=== PATIENT | female | born 1935 | race African-American/Black ===

== ENCOUNTER 2018-12-19 05:48 | Inpatient (IN) | payer OTHER ==
[~2018-12-19] VITALS: Ht 165.1 cm; Wt 67.4 kg
[2018-12-19] VITALS (35 sets, daily range): BP systolic 109–162; BP diastolic 48–93
[2018-12-19] MEDS ORDERED: ALBUTEROL (0.083%) 2.5MG/3ML NEB HHN STA (06:23)
[2018-12-19] MEDS ORDERED: ATROPINE SULFATE 1MG/ML VIAL IV ONE (06:30)
[2018-12-19] MEDS ORDERED: METHYLPREDNISOLONE SOD SUCC 125 MG/2 ML VIAL IV ONE (06:45)
[2018-12-19] MEDS ORDERED: DOPAMINE 400MG/250ML PREMIX 250 ML IV ONE (06:45)
[2018-12-19 06:55] LABS: CHLORIDE 92 mEq/L (98-107); EOSINOPHILS % 0.6 % (0.0-5.0); HEMATOCRIT. 29.2 % (36.0-48.0); HEMOGLOBIN. 9.5 g/dL (12.0-16.0); LYMPHOCYTES % 26.3 % (20.0-50.0); MEAN CORPUSCULAR HEMOGLOBIN 25.4 pg (28.0-32.0); MEAN CORPUSCULAR VOLUME 78.1 fL (81.0-99.0); MEAN PLATELET VOLUME 10.2 fl (7.4-10.4); MONOCYTES % 8.2 % (2.0-8.0); NEUTROPHILS % 63.9 % (40.0-76.0); PLATELET 135 x1000/uL (130-400); RED BLOOD CELL COUNT 3.73 mill/uL (4.2-5.4); RED CELL DISTRIBUTION WIDTH 19.5 % (11.6-14.6)
[2018-12-19 06:59] LABS: PARTIAL THROMBOPLASTIN TIME 67.8 sec (23.4-31.0); PROTHROMBIN TIME 20.1 sec (9.6-11.0)
[2018-12-19 07:07] LABS: CLARITY URINE CLOUDY (CLEAR); COLOR URINE DARK YELLOW (YELLOW); KETONES URINE TRACE (NEGATIVE); LEUKOCYTE ESTERASE URINE TRACE (NEGATIVE); NITRITE URINE NEGATIVE (NEGATIVE); OCCULT BLOOD URINE TRACE (NEGATIVE); PROTEIN URINE 2+ (NEGATIVE); SPECIFIC GRAVITY URINE 1.018 (1.005-1.030)
[2018-12-19] MEDS ORDERED: LIDOCAINE HCL 1% 20ML VIAL (Pyxis) INJ ONE (07:17)
[2018-12-19 07:39] LABS: BG BASE EXCESS -2.5 mmol/L (-2.0-2.0); BG DEOXYHEMOGLOBIN 0.3 % (0.0-5.0); BG FRACTION INSPIRED OXYGEN 100; BG HCO3 ACT 21.1 mmol/L (22.0-26.0); BG METHEMOGLOBIN 0.3 % (0.0-1.5); BG OXYGEN SATURATION 99.7 % (92.0-98.5); BG OXYHEMOGLOBIN 98.4 % (94.0-97.0); BG PCO2 32.3 mmHg (35.0-45.0); BG PH 7.432 (7.350-7.450); BG PO2 349.2 mmHg (75.0-100.0); BG SAMPLE SITE RIGHT RADIAL; BG TOTAL HEMOGLOBIN 10.9 g/dL (12.0-18.0); BG VENT MODE MASK - NRB
[2018-12-19] MEDS ORDERED: CEFTRIAXONE 1 G PREMIX 50 ML IV ONE (08:00)
[2018-12-19] MEDS ORDERED: LEVOTHYROXINE SODIUM 75MCG TABLET PO SCH (09:45)
[2018-12-19] MEDS ORDERED: ONDANSETRON HCL 4MG/2ML INJ IV ONE (09:45)
[2018-12-19] MEDS ORDERED: NITROGLYCERIN 0.4MG TABLET SL SL PRN (10:30)
[2018-12-19] MEDS ORDERED: GUAIFENESIN 200MG/10ML SUGAR FREE UDC PO PRN (10:30)
[2018-12-19] MEDS ORDERED: ZOLPIDEM TARTRATE 5MG TABLET PO PRN (10:30)
[2018-12-19] MEDS ORDERED: ONDANSETRON HCL 4MG/2ML INJ IV PRN (10:30)
[2018-12-19] MEDS ORDERED: IPRATROPIUM/ALBUTEROL 0.5-3(2.5)MG/3ML NEB INH PRN (10:30)
[2018-12-19] MEDS ORDERED: DOCUSATE SODIUM 100MG CAPSULE PO PRN (10:30)
[2018-12-19] MEDS ORDERED: ACETAMINOPHEN 325MG TABLET PO PRN (10:30)
[2018-12-19] MEDS ORDERED: CLONIDINE 0.1MG TABLET PO PRN (10:30)
[2018-12-19] MEDS ORDERED: MAGNESIUM/ALUMINUM HYDROXIDE/SIMETHICONE 30ML UDC PO PRN (10:30)
[2018-12-19] MEDS ORDERED: ENOXAPARIN 40MG/0.4ML SYR SUBCUT SCH (10:30)
[2018-12-19] MEDS ORDERED: TRAMADOL 50MG TABLET PO PRN (10:30)
[2018-12-19 10:53] LABS: T4 FREE 1.52 ng/dL (0.76-1.46)
[2018-12-19 11:17] LABS: VITAMIN B12 SERUM >2000 pg/mL pg/mL (211-911)
[2018-12-19] MEDS ORDERED: THIA50TA PO (16:12)
[2018-12-19] MEDS ORDERED: HYDR25SU7 RC (16:12)
[2018-12-19] MEDS ORDERED: CEPH-569 MT (16:12)
[2018-12-19] MEDS ORDERED: DABI75CA3 PO (16:53)
[2018-12-19] MEDS ORDERED: DABIGATRAN ETEXILATE MESYLATE 75 MG PO SCH (17:00)
[2018-12-19] MEDS ORDERED: CYAN10009 PO (17:08)
[2018-12-19] MEDS ORDERED: FURO20TA4 PO (17:12)
[2018-12-19] MEDS ORDERED: METO25TA6 PO (17:18)
[2018-12-19] MEDS ORDERED: AMLO5TAB4 PO (17:19)
[2018-12-19] MEDS ORDERED: LIP40 PO (17:22)
[2018-12-19] MEDS ORDERED: CHOL100062 PO (17:39)
[2018-12-19] MEDS ORDERED: ALBU05 IH (17:42)
[2018-12-19] MEDS ORDERED: ALBU18HF2 IH (17:45)
[2018-12-19 17:49] LABS: CREATINE KINASE MB FRACTION 3.5 ng/mL (0.5-3.6)
[2018-12-19] MEDS ORDERED: ipratropium INH (17:51)
[2018-12-19] MEDS: FUROSEMIDE 40MG/4ML VIAL IVP SCH (18:30)
[2018-12-19] MEDS: CEFTRIAXONE 1 G PREMIX 50 ML IV SCH (20:42)
[2018-12-19] MEDS: FAMOTIDINE 20MG TABLET PO SCH (20:42)
[2018-12-19] MEDS ORDERED: PRADAXA 75 MG PO SCH (21:00)
[2018-12-19] MEDS: DOPAMINE 400MG/250ML PREMIX 250 ML IV PRN (22:45)
[2018-12-20] VITALS (52 sets, daily range): BP systolic 114–167; BP diastolic 53–94
[2018-12-20 01:01] LABS: CREATINE KINASE MB FRACTION 2.6 ng/mL (0.5-3.6)
[2018-12-20] MEDS: FUROSEMIDE 40MG/4ML VIAL IVP SCH (04:28)
[2018-12-20 05:45] LABS: HEMATOCRIT. 30.5 % (36.0-48.0); HEMOGLOBIN. 9.7 g/dL (12.0-16.0); MEAN CORPUSCULAR HEMOGLOBIN 25.1 pg (28.0-32.0); MEAN CORPUSCULAR VOLUME 78.6 fL (81.0-99.0); MEAN PLATELET VOLUME 9.5 fl (7.4-10.4); PLATELET 171 x1000/uL (130-400); RED BLOOD CELL COUNT 3.88 mill/uL (4.2-5.4); RED CELL DISTRIBUTION WIDTH 19.5 % (11.6-14.6)
[2018-12-20 06:14] LABS: CHLORIDE 88 mEq/L (98-107)
[2018-12-20] MEDS: DOPAMINE 400MG/250ML PREMIX 250 ML IV PRN ×2 (07:45→17:29)
[2018-12-20] MEDS ORDERED: LEVOTHYROXINE SODIUM 75MCG TABLET PO SCH (08:00)
[2018-12-20] MEDS: FAMOTIDINE 20MG TABLET PO SCH (08:16)
[2018-12-20 08:50] LABS: NUCLEATED RED BLOOD CELLS 5 /100 WBC; PLATELET ESTIMATE NORMAL
[2018-12-20] MEDS ORDERED: ASPIRIN 325MG EC TABLET PO SCH (09:00)
[2018-12-20] MEDS ORDERED: PRADAXA 75 MG PO SCH (09:00)
[2018-12-20 17:05] LABS: INR 1.8; PROTHROMBIN TIME 18.2 sec (9.6-11.0)
[2018-12-20] MEDS ORDERED: FUROSEMIDE 40MG/4ML VIAL IVP SCH (17:15)
[2018-12-20] MEDS: CEFTRIAXONE 1 G PREMIX 50 ML IV SCH (17:29)
== END 2018-12-20 20:20 | disposition short-term general hospital (02) | DRG 91 ==
LOC: ER 05:48 → EDBEDREQTM 06:19 → EDBEDREQ 06:19 → EDBEDREQSVC 06:19 → MICUSO 06:53 → EDBEDREQ 06:56 → EDBEDREQTM 06:56 → ENRESERV 14:38 → MICUSO 12-20 07:46
PROVIDERS: ADMIT Internal Medicine; ATTEND Internal Medicine
PROC: 05HY33Z Insertion of Infusion Device into Upper Vein, Percutaneous Approach (ICD-10-PCS; principal; 2018-12-19)
PROC: B54MZZA Ultrasonography of Right Upper Extremity Veins, Guidance (ICD-10-PCS; 2018-12-19)
DX: G92 Toxic encephalopathy (principal); J96.00 Acute respiratory failure, unspecified whether with hypoxia or hypercapnia; N17.0 Acute kidney failure with tubular necrosis; D61.818 Other pancytopenia; E44.1 Mild protein-calorie malnutrition; E87.1 Hypo-osmolality and hyponatremia; I48.92 Unspecified atrial flutter; D63.8 Anemia in other chronic diseases classified elsewhere; E03.9 Hypothyroidism, unspecified; F03.90 Unspecified dementia, unspecified severity, without behavioral disturbance, psychotic disturbance, mood disturbance, and anxiety; I11.0 Hypertensive heart disease with heart failure; I48.91 Unspecified atrial fibrillation; I50.9 Heart failure, unspecified; J45.909 Unspecified asthma, uncomplicated; Z79.899 Other long term (current) drug therapy; Z86.73 Personal history of transient ischemic attack (TIA), and cerebral infarction without residual deficits; I25.2 Old myocardial infarction; Z88.8 Allergy status to other drugs, medicaments and biological substances; Z68.24 Body mass index [BMI] 24.0-24.9, adult
CPT/HCPCS: 36415; 36569; 36600; 71045; 76937; 80048; 80061; 82375; 82550; 82553; 82607; 82746; 82805; 82962; 83036; 83540; 83550; 83605; 83735; 83880; 84145; 84439; 84443; 84484; 86850; 86870; 86900; 93005; 93306; 93970; 94640; 99291; C1725; J0461; J0696; J1265; J1940; J2405; J2930; J3490; J7040; J7611; A4315